=== PATIENT | female | born 1930 | race Caucasian/White ===

== ENCOUNTER → 2019-02-08 | Outpatient (CLI) | payer MEDICARE | LOC: COL.VAS 10:43 | DX: I10 Essential (primary) hypertension (principal); R55 Syncope and collapse ==

== ENCOUNTER → 2020-03-20 | Outpatient (CLI) | payer MEDICARE | LOC: COL.RAD 03-18 10:00 | DX: Z01.812 Encounter for preprocedural laboratory examination (principal); S09.90XA Unspecified injury of head, initial encounter; I67.82 Cerebral ischemia; G31.9 Degenerative disease of nervous system, unspecified | CPT/HCPCS: Q9967 ==

== ENCOUNTER 2020-06-03 19:54 | Emergency (ER) | payer MEDICARE ==
[~2020-06-03] VITALS: Ht 172.7 cm; Wt 102.3 kg
[2020-06-03 20:23] VITALS: BP 153/90; TEMP 98.5
[2020-06-03 21:22] LABS: HEMATOCRIT 39.7 % (37.0-47.0); HEMOGLOBIN 12.7 g/dl (12.5-16.0); MEAN CELL VOLUME 90 fl (80.0-100.0); MEAN CORPUSCULAR HEMOGLOBIN 29 pg (27.0-31.0); MEAN CORPUSCULAR HGB CONC 32 g/dl (33.0-37.0); MEAN PLATELET VOLUME 11.5 fl (7.4-10.4); PLATELET COUNT 234 K/mm3 (130-400); RED BLOOD COUNT 4.42 M/mm3 (4.10-5.30); REDCELL DISTRIBUTION WIDTH-CV 13.5 % (11.5-14.5)
[2020-06-03] MEDS ORDERED: NEUPRO1 MG/24 HR TD (21:23)
[2020-06-03] MEDS ORDERED: NEUPRO3 MG/24 HR TD (21:23)
[2020-06-03] MEDS ORDERED: CELEBREX 1100 MG/CAP PO (21:24)
[2020-06-03] MEDS ORDERED: NEURONTIN400 MG/CAP PO (21:24)
[2020-06-03] MEDS ORDERED: NEURONTIN800 MG/TAB PO (21:24)
[2020-06-03] MEDS ORDERED: BREO ELLIPTA 21 EACH IH (21:24)
[2020-06-03] MEDS ORDERED: SINGULAIR 110 MG/TAB PO (21:24)
[2020-06-03] MEDS ORDERED: ULTRAM 50MG TAB50 MG PO (21:24)
[2020-06-03] MEDS ORDERED: LASIX 40MG TABL40 MG PO (21:25)
[2020-06-03] MEDS ORDERED: K-DUR 10 MEQ T10 MEQ PO (21:25)
[2020-06-03 22:00] LABS: PH 7 (5-8); SQUAMOUS EPITHELIAL 0-2 /hpf; URINE APPEARANCE Clear; URINE BACTERIA None Seen /hpf; URINE BILIRUBIN Negative (NEGATIVE); URINE BLOOD Negative (NEGATIVE); URINE COLOR Yellow; URINE GLUCOSE Negative (NEGATIVE); URINE KETONE Negative (NEGATIVE); URINE LEUKOCYTE ESTERASE Negative (NEGATIVE); URINE NITRATE Negative (NEGATIVE); URINE PROTEIN(semi-quant) Negative (NEGATIVE); URINE RBC 0-2 /hpf; URINE WBC None Seen /hpf
[2020-06-03 22:11] LABS: CALCIUM 9.4 mg/dL (8.4-10.2); CREATININE, serum 0.96 (0.52-1.25); POTASSIUM 3.6 mmol/L (3.4-5.0)
[2020-06-03 22:49] LABS: COLLECTION METHOD CLEAN CATCH
[2020-06-03] MEDS ORDERED: NORCO 325 MG-51 TAB PO (22:58)
[2020-06-03 23:34] VITALS: PULSE 83
== END 2020-06-03 23:34 | disposition home or self-care (01) ==
LOC: COL.ER 19:54
PROVIDERS: Emergency Medicine
DX: R07.81 Pleurodynia (principal); R10.9 Unspecified abdominal pain; G89.29 Other chronic pain; I10 Essential (primary) hypertension; M54.5 Low back pain; R40.2412 Glasgow coma scale score 13-15, at arrival to emergency department; Z79.51 Long term (current) use of inhaled steroids; W19.XXXA Unspecified fall, initial encounter; Y92.009 Unspecified place in unspecified non-institutional (private) residence as the place of occurrence of the external cause
CPT/HCPCS: Q9967

== ENCOUNTER → 2020-06-12 | Outpatient (CLI) | payer MEDICARE ==
[~2020-06-12] MED LIST: BREO ELLIPTA 21 EACH IH; CELEBREX 1100 MG/CAP PO; K-DUR 10 MEQ T10 MEQ PO; LASIX 40MG TABL40 MG PO; NEUPRO1 MG/24 HR TD; NEUPRO3 MG/24 HR TD; NEURONTIN400 MG/CAP PO; NEURONTIN800 MG/TAB PO; NORCO 325 MG-51 TAB PO; SINGULAIR 110 MG/TAB PO; ULTRAM 50MG TAB50 MG PO
== END ==
LOC: MHCPAIN 15:01
DX: M47.817 Spondylosis without myelopathy or radiculopathy, lumbosacral region (principal); M54.5 Low back pain; M53.3 Sacrococcygeal disorders, not elsewhere classified; G89.29 Other chronic pain; M54.16 Radiculopathy, lumbar region
CPT/HCPCS: G0463

== ENCOUNTER → 2020-06-20 | Outpatient (CLI) | payer MEDICARE | LOC: MHCPAIN 09:11 | DX: M47.817 Spondylosis without myelopathy or radiculopathy, lumbosacral region (principal); M54.5 Low back pain; M53.3 Sacrococcygeal disorders, not elsewhere classified | CPT/HCPCS: J1100; Q9967 ==

== ENCOUNTER → 2020-07-03 | Outpatient (CLI) | payer MEDICARE | LOC: MHCPAIN 13:13 | DX: M47.817 Spondylosis without myelopathy or radiculopathy, lumbosacral region (principal); M54.5 Low back pain; M53.3 Sacrococcygeal disorders, not elsewhere classified; M47.814 Spondylosis without myelopathy or radiculopathy, thoracic region; G89.29 Other chronic pain | CPT/HCPCS: G0463 ==

== ENCOUNTER → 2020-07-05 | Outpatient (CLI) | payer MEDICARE | LOC: MC.RAD 11:18 | DX: Z12.31 Encounter for screening mammogram for malignant neoplasm of breast (principal) ==

== ENCOUNTER → 2021-12-23 | Outpatient (CLI) | payer MEDICARE | LOC: MC.RAD 10-28 14:30 | DX: Z12.31 Encounter for screening mammogram for malignant neoplasm of breast (principal) ==